=== PATIENT | male | born 1955 | race Caucasian/White ===

== ENCOUNTER → 2016-03-16 | Outpatient (CLI) | payer BC ==
[~2016-03-16] MED LIST: ASPI325T39 PO; CLOP1TAB5 PO; LOSA50TA54 PO; LPT40 PO; MULT-506 PO; POTA1080 PO; TPRSR/100 PO
== END | disposition home or self-care (01) ==
LOC: C.LAB 14:13
PROVIDERS: ATTEND Urology
DX: N39.0 Urinary tract infection, site not specified (principal)

== ENCOUNTER → 2016-05-10 | Outpatient (CLI) | payer BC ==
[2016-05-10 10:49] LABS: BLOOD UREA NITROGEN 24 mg/dl (7-18); BUN/CREATININE RATIO 24.2 (10-20); CARBON DIOXIDE 27 mmol/L (21-32); CHLORIDE 108 mmol/L (98-107); GLUCOSE 85 mg/dl (70-99); POTASSIUM 4.2 mmol/L (3.5-5.1); SODIUM 142 mmol/L (136-145)
[2016-05-10 10:56] LABS: CHOLESTEROL/HDL RATIO 2.3
== END | disposition home or self-care (01) ==
LOC: C.LAB 09:10
PROVIDERS: ATTEND Urology
DX: N20.0 Calculus of kidney (principal); I25.10 Atherosclerotic heart disease of native coronary artery without angina pectoris; I10 Essential (primary) hypertension; E78.5 Hyperlipidemia, unspecified

== ENCOUNTER → 2016-07-03 | Outpatient (CLI) | payer BC | END | disposition home or self-care (01) | LOC: C.MAMM 12:58 | DX: M85.88 Other specified disorders of bone density and structure, other site (principal) ==

== ENCOUNTER → 2017-05-13 | Outpatient (CLI) | payer OTHER ==
[2017-05-13 09:34] LABS: BASO % 0.3 %; BASO ABS # 0.02 K/uL (0-0.2); EOS % 5.1 %; HEMATOCRIT 43.4 % (42-52); HEMOGLOBIN 14.8 g/dL (14.0-18.0); IG# 0.01 K/uL (0.00-0.02); LYMPH % 22.7 %; LYMPH ABS # 1.33 K/uL (1.2-3.4); MEAN CELL VOLUME 89.9 fL (80-100); MEAN CORPUSCULAR HEMOGLOBIN 30.6 pg (25-34); MEAN CORPUSCULAR HGB CONC 34.1 g/dl (32-36); MEAN PLATELET VOLUME 10.4 fL (7.4-10.4); MONO % 5.6 %; MONO ABS # 0.33 K/uL (0.11-0.59); NEUT % 66.1 %; NEUT ABS # 3.87 K/uL (1.4-6.5); PLATELET COUNT 193 K/uL (130-400); WHITE BLOOD COUNT 5.86 K/uL (4.8-10.8)
[2017-05-13 09:59] LABS: HEMOGLOBIN A1C 5.7 % (4.5-5.6)
[2017-05-13 10:02] LABS: ALT/SGPT 24 U/L (12-78); AST/SGOT 16 U/L (15-37); BLOOD UREA NITROGEN 17 mg/dl (7-18); CALCIUM 9.5 mg/dl (8.5-10.1); CARBON DIOXIDE 26 mmol/L (21-32); CREATININE 0.96 mg/dl (0.60-1.40); GLUCOSE 94 mg/dl (70-99); SODIUM 139 mmol/L (136-145); URIC ACID 4.9 mg/dl (2.6-7.2)
== END | disposition home or self-care (01) ==
LOC: C.LAB 08:32
DX: I10 Essential (primary) hypertension (principal); E78.5 Hyperlipidemia, unspecified; M81.0 Age-related osteoporosis without current pathological fracture; N40.0 Benign prostatic hyperplasia without lower urinary tract symptoms

== ENCOUNTER → 2017-06-07 | Outpatient (CLI) | payer OTHER ==
[2017-06-07 13:58] LABS: INFLUENZA A PCR Neg for Influ A (NEG); INFLUENZA B PCR Neg for Influ B (NEG)
== END | disposition home or self-care (01) ==
LOC: C.LAB 12:24
DX: R50.9 Fever, unspecified (principal)

== ENCOUNTER 2024-12-31 23:34 | Observation (INO) ==
--- NOTE | 2025-01-01 00:12 | Emergency Department Note ---
ED Visit Note The patient was seen and examined with Geo. I performed a substantive portion of all aspects of the medical decision making and agree with the h istory, physical and findings. Please see the note for disposition and details. .
[2025-01-01] MEDS: ACETAMINOPHEN 1,000 MG/100 ML VIAL IV STA (00:18)
[2025-01-01 00:28] LABS: Hematocrit (blood only) 44.5 % (42.0-52.0); Hemoglobin 14.9 g/dL (14.0-18.0); Immature Granulocytes # (auto) 0.03 K/uL (0.01-0.20); Immature Granulocytes % (auto) 0.3 %; Mean Corpuscular Hemoglobin 29.9 pg (25.0-34.0); Mean Corpuscular Volume 89.2 fL (80.0-100.0); Platelet Count 190 K/uL (130-400); RDW Standard Deviation 46.3 fL (36.4-46.3); Red Blood Count 4.99 M/uL (4.70-6.10); White Blood Count 10.22 K/ul (4.8-10.8)
[2025-01-01 00:45] LABS: Alanine Aminotransferase 15.0 U/L (7-52); Albumin Level 4.7 gm/dl (3.4-5.0); Alkaline Phosphatase 104.0 U/L (34-104); Anion Gap 6.0 (3-11); Bilirubin,Total 1.3 mg/dl (0.2-1.0); Blood Urea Nitrogen 23.0 mg/dl (6-23); Calcium 9.9 mg/dl (8.6-10.3); Carbon Dioxide 25.0 mmol/L (21-32); Chloride 107.0 mmol/L (98-107); Creatinine Clr Calc Pharmacy 83.1 ml/min; Glucose 114.0 mg/dl (70-99(Fasting)); Magnesium 1.9 mg/dl (1.7-2.4); Potassium 3.7 mmol/L (3.5-5.1); Sodium 138.0 mmol/L (136-145); Total Protein 8.1 gm/dl (6.0-8.3)
[2025-01-01 00:48] LABS: Base Excess VBG 0.5 mEq/L; HCO3 VBG 26 mmol/L; Oxygen Saturation VBG < 60.0 %; PCO2 VBG 44 mmHg (38-50); PO2 VBG 28 mmHg; pH VBG 7.38 (7.36-7.41)
[2025-01-01] MEDS: OPTIRAY 320 125ml IV ONE (01:05)
[2025-01-01 01:27] LABS: Chlamydia pneumoniae PCR Not Detected (NotDetected); Coronavirus 229E PCR Not Detected (NotDetected); Coronavirus CoV-2 (COVID19)PCR Not Detected (NotDetected); Coronavirus HKU1 PCR Not Detected (NotDetected); Coronavirus NL63 PCR Not Detected (NotDetected); Coronavirus OC43PCR Not Detected (NotDetected); Human Metapneumovirus PCR Not Detected (NotDetected); Parainfluenza Virus 1 PCR Not Detected (NotDetected); Parainfluenza Virus 2 PCR Not Detected (NotDetected); Parainfluenza Virus 3 PCR Not Detected (NotDetected); Parainfluenza Virus 4 PCR Not Detected (NotDetected); Respiratory Syncytial VirusPCR Not Detected (NotDetected); Rhinovirus/Enterovirus PCR Not Detected (NotDetected)
[2025-01-01] MEDS: MoRPHine SULFATE 4 MG/ML 1 ML CARP\\VIAL IV STA (01:34)
--- NOTE | 2025-01-01 01:39 | Emergency Department Note ---
History of Present Illness General Chief complaint: Abdominal Pain Stated complaint: FLU-LIKE SX, ABD PAIN, BACK PAIN, SX SINCE ~SATURDAY Time Seen by Provider: 12/31/24 23:48 History of Present Illness Maximum Pain Intensity: 2 This 69-year-old male presents ER complaint of fever, chills, cough, congestion, right side abdominal pain that radiates up to his chest for the past day or 2. Patient denies vomiting, diarrhea, injury to the area, urinary symptoms. He still has his gallbladder. He is concerned it could also be a kidney stone. Home Medications Medication Instructions Recorded Confirmed Type aspirin 81 mg tablet,delayed 81 mg PO HS 12/08/18 01/01/25 History release nitroglycerin 0.4 mg sublingual 0.4 mg sublingual Q5M PRN chest 09/23/23 01/01/25 Rx tablet pain #25 tabs alprazolam 1 mg tablet 1 mg PO UD #10 tabs 02/13/24 01/01/25 Rx rosuvastatin 20 mg tablet 20 mg PO HS #90 tabs 05/07/24 01/01/25 Rx tadalafil 5 mg tablet 5 mg PO DAILY #30 tabs 07/06/24 01/01/25 Rx potassium citrate 10 mEq (1,080 10 meq PO BID 30 days #90 tabs 09/09/24 01/01/25 Rx mg) tablet,extended release sildenafil 100 mg tablet 100 mg PO DAILY PRN sexual 11/25/24 01/01/25 Rx activity #20 tabs tadalafil 20 mg tablet 20 mg PO DAILY PRN sexual activity 11/25/24 01/01/25 Rx #20 tabs metoprolol succinate 100 mg 100 mg PO HS #90 tabs 12/25/24 01/01/25 Rx tablet,extended release 24 hr Allergies Allergy/AdvReac Type Severity Reaction Status Date / Time Penicillins Allergy Mild Rash Verified 12/10/24 11:08 Past Med/Surg History Problem List (Updated 01/01/25 @ 02:42 by Swapna Guardado PA-C) Abdominal pain, acute (Acute) Presence of bare metal stent in left circumflex coronary artery Erectile dysfunction Prediabetes NAFLD (nonalcoholic fatty liver disease) Hepatic cirrhosis Benign localized prostatic hyperplasia with lower urinary tract symptoms (LUTS) Calculus of kidney and ureter (Acute) Coronary artery stenosis (Acute) Other and unspecified hyperlipidemia (Acute) Internal hemorrhoids (Acute) Nephrolithiasis, uric acid (Acute) Kidney stones Ocular migraine hx Antiplatelet or antithrombotic long-term use Hyperlipidemia CAD (coronary artery disease) Hypertension Medical History History of MT (myocardial infarction) Fatty liver MGUS (monoclonal gammopathy of unknown significance) Sleep apnea Pericarditis Kidney stone Pleurisy Chest pain Surgical History History of coronary artery stent placement History of esophagogastroduodenoscopy (EGD) History of anesthesia reaction History of cystoscopy History of colonoscopy History of herniorrhaphy History of tooth extraction Retinal tear of right eye History of cataract surgery History of heart artery stent Family History Mother Hypertension Father Hypertension Grandfather (Maternal) Myocardial infarction Uncle Prostate cancer Denies family history of Ovarian cancer Breast cancer Colorectal cancer Social History Smoking Status: Never smoker Second Hand Exposure: No (hx); Do You Dip or Chew Tobacco: No; Hx Alcohol Use: Yes Hx Substance Use: Yes Preferred Language: Ghanaian Communication Ability: Effective Visual Impairment: Limited Hearing Ability: Normal Wood Floor Refinisher Required: No Beliefs That Will Affect Care: None marital status: / Current Living Situation: Alone current occupational status: 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 How many Children do You have: 2 Feels Safe at Home: Yes Childhood Exposure to Second-Hand Smoke: Yes Diet: regular caffeine: Yes during the past year weight has: remained stable Dental Care, Regularly: Yes Physical Activity Frequency: 3-4 Times per Week Seatbelt Use: always Sunscreen Use: Yes Assistive Devices: CPAP Review of Systems A total of 10 systems reviewed and were otherwise negative Physical Exam Vital Signs Vital Signs - 24 hr 12/31/24 23:36 01/01/25 00:00 01/01/25 00:00 Temperature 36.7 C Temperature Source Oral Pulse Rate 82 Pulse Rate [Finger] 94 H Pulse Rate from SpO2 Sensor Pulse Rhythm [Finger] Regular Pulse Strength [Finger] Normal Respiratory Rate 20 20 Respiratory Effort / Characteristics Non-Labored Spontaneous Respiratory Depth Normal Respiratory Pattern Regular Blood Pressure 160/89 H Blood Pressure [Right Arm] 134/92 Blood Pressure Mean 112 Blood Pressure Mean [Right Arm] 106 Blood Pressure Position [Right Arm] Lying Pulse Oximetry 99 97 Oxygen Delivery Method Room Air Room Air Room Air Sepsis Recent Fever Within 48 Hours No Sepsis New/Unexplained Change in Mental Status No Sepsis Action Taken by Nursing No Action Required 01/01/25 00:14 01/01/25 00:15 01/01/25 00:25 Temperature Temperature Source Pulse Rate 89 92 H Pulse Rate [Finger] Pulse Rate from SpO2 Sensor 84 Pulse Rhythm [Finger] Pulse Strength [Finger] Respiratory Rate 22 Respiratory Effort / Characteristics Respiratory Depth Respiratory Pattern Blood Pressure 134/92 Blood Pressure [Right Arm] Blood Pressure Mean 106 Blood Pressure Mean [Right Arm] Blood Pressure Position [Right Arm] Pulse Oximetry 97 Oxygen Delivery Method Room Air Room Air Sepsis Recent Fever Within 48 Hours Sepsis New/Unexplained Change in Mental Status Sepsis Action Taken by Nursing 01/01/25 00:30 01/01/25 01:30 01/01/25 02:00 Temperature Temperature Source Pulse Rate 85 Pulse Rate [Finger] 82 84 Pulse Rate from SpO2 Sensor 85 Pulse Rhythm [Finger] Regular Regular Pulse Strength [Finger] Normal Normal Respiratory Rate 17 20 20 Respiratory Effort / Characteristics Non-Labored Spontaneous Non-Labored Spontaneous Respiratory Depth Normal Normal Respiratory Pattern Regular Regular Blood Pressure 126/83 Blood Pressure [Right Arm] 136/86 129/81 Blood Pressure Mean 97 Blood Pressure Mean [Right Arm] 102 97 Blood Pressure Position [Right Arm] Lying Lying Pulse Oximetry 96 97 98 Oxygen Delivery Method Room Air Room Air Sepsis Recent Fever Within 48 Hours Sepsis New/Unexplained Change in Mental Status Sepsis Action Taken by Nursing VITALS: Vitals are noted on the nurse's note and reviewed by myself. Vital signs stable. GENERAL: Pleasant gentleman who appears in pain, in no acute distress, nondiaphoretic, well-developed well-nourished. SKIN: The skin was without rashes, erythema, edema, or bruising. There is no tenting of the skin. Capillary reflex less than 2 seconds. HEAD: Normocephalic atraumatic. EARS: External auditory canals clear EYES: Pupils equal round and reactive to light and accommodation. Conjunctivae without injection, sclerae without icterus. Extraocular movements intact. NOSE: Patent, no discharge. MOUTH: Mucous membranes moist. Pharynx without erythema or exudate. Uvula midline. Airway patent. Tongue does not deviate. NECK: Supple without nuchal rigidity. No lymphadenopathy. No thyromegaly. Cervical spine is nontender. No JVD. HEART: Regular rate and rhythm LUNGS: Clear to auscultation bilaterally without wheezes, rales or rhonchi. No retractions or accessory muscle use. ABDOMEN: Positive bowel sounds x 4. Normal tympanic percussion. Soft, tender right abdomen, without masses or organomegaly. No guarding or rebound tenderness. No CVA tenderness MUSCULOSKELETAL: No muscle atrophy, erythema, or edema noted. NEURO: Patient was alert and oriented to person place and time. Normal sensation to light and sharp touch. No focal neurological deficits. Course Administered Medications Discontinued Medications Acetaminophen (Ofirmev) 1,000 mg in 100 mls @ 400 mls/hr IV NOW STA Stop: 01/01/25 00:21 Last Infusion: 01/01/25 00:41 Dose: Infused Documented By: Admin: 01/01/25 00:18 Dose: 400 mls/hr Documented By: MIGUEL Ioversol (Optiray 320 125ml) 118 ml IV ONCE ONE Stop: 01/01/25 01:06 Last Admin: 01/01/25 01:05 Dose: 118 ml Documented By: DELFINA Morphine Sulfate (Morphine Sulfate 4 Mg/Ml 1 Ml Carp\Vial) 4 mg IV NOW STA Stop: 01/01/25 01:29 Last Admin: 01/01/25 01:34 Dose: 4 mg Documented By: MIGUEL Medical Decision Making Medical Records Attestation: I reviewed the patient's medical records. Home Medications Current Medication List: was personally reviewed by me Laboratory Data Attestation: I reviewed the patient's lab results. 01/01/25 00:00 01/01/25 00:00 Lab Results 01/01/25 01/01/25 01/01/25 Range/Units 00:00 00:05 00:13 WBC 10.22 (4.8-10.8) K/ul RBC 4.99 (4.70-6.10) M/uL Hgb 14.9 (14.0-18.0) g/dL POC Hgb 16.0 (14.0-18.0) g/dl Hct 44.5 (42.0-52.0) % POC Hct 47 (42-52) % MCV 89.2 (80.0-100.0) fL MCH 29.9 (25.0-34.0) pg MCHC 33.5 (32.0-36.0) g/dL RDW Std Deviation 46.3 (36.4-46.3) fL RDW Coeff of Nito 14.4 (11.5-14.5) % Plt Count 190 (130-400) K/uL MPV 11.4 (9.4-12.4) fL Immature Gran % (Auto) 0.3 % Neut % (Auto) 82.7 % Lymph % (Auto) 9.7 % Clark % (Auto) 5.7 % Eos % (Auto) 1.2 % Baso % (Auto) 0.4 % Neut # (Auto) 8.46 H (1.40-6.50) K/uL Lymph # (Auto) 0.99 L (1.20-3.40) K/uL Clark # (Auto) 0.58 (0.11-0.59) K/uL Eos # (Auto) 0.12 (0.00-0.50) K/uL Baso # (Auto) 0.04 (0.00-0.20) K/uL Immature Gran # (Auto) 0.03 (0.01-0.20) K/uL VBG pH (7.36-7.41) VBG pCO2 (38-50) mmHg VBG pO2 mmHg VBG HCO3 mmol/L VBG O2 Saturation % VBG Base Excess mEq/L POC Sodium 142 (135-144) mmol/L Sodium 138 (136-145) mmol/L POC Potassium 3.7 (3.3-5.0) mmol/L Potassium 3.7 (3.5-5.1) mmol/L POC Chloride 105 (101-112) mmol/L Chloride 107 (98-107) mmol/L Carbon Dioxide 25 (21-32) mmol/L POC Total CO2 23 L (24-31) mmol/L Anion Gap 6 (3-11) POC Anion Gap 18.0 (16-25) mmol/L POC BUN 24 H (7-18) mg/dl BUN 23 (6-23) mg/dl Creatinine 1.01 (0.6-1.4) mg/dl POC Creatinine 1.0 (0.6-1.3) mg/dl Est Cr Clr Drug Dosing 83.1 ml/min eGFR 80.01 BUN/Creatinine Ratio 22.8 H (10-20) Glucose 114 H (70-99(Fasting)) mg/dl POC Glucose (other) 112 H (70-99) mg/dl Lactate 1.1 (0.4-2.0) mmol/L Calcium 9.9 (8.6-10.3) mg/dl POC Ioniz Calcium Levi 1.28 (1.12-1.32) mmol/l Magnesium 1.9 (1.7-2.4) mg/dl Total Bilirubin 1.3 H (0.2-1.0) mg/dl Direct Bilirubin 0.3 H (0-0.2) mg/dl AST 20 (13-39) U/L ALT 15 (7-52) U/L Alkaline Phosphatase 104 (34-104) U/L Troponin I High Sens 3.2 (0-20) pg/ml Total Protein 8.1 (6.0-8.3) gm/dl Albumin 4.7 (3.4-5.0) gm/dl Procalcitonin < 0.02 (0-0.5) ng/ml Urine Color Urine Appearance (Clear) Urine pH (4.5-7.5) Ur Specific Hardy (1.000-1.030) Urine Protein (Negative) Urine Glucose (UA) (Negative) Urine Ketones (Negative) Urine Blood (Negative) Urine Nitrite (Negative) Urine Bilirubin (Negative) Urine Urobilinogen (Negative) Ur Leukocyte Esterase (Negative) Urine Comment Adenovirus (PCR) Not Detected (NotDetected) B. pertussis DNA (PCR) Not Detected (NotDetected) B.parapertussis DNA PCR Not Detected (NotDetected) C. pneumoniae DNA (PCR) Not Detected (NotDetected) Coronavirus OC43 (PCR) Not Detected (NotDetected) Coronavirus HKU1 (PCR) Not Detected (NotDetected) Coronavirus 229E (PCR) Not Detected (NotDetected) SARS-CoV-2 (PCR) Not Detected (NotDetected) Coronavirus NL63 (PCR) Not Detected (NotDetected) Human Metapneumovir PCR Not Detected (NotDetected) Influenza Type A (PCR) Not Detected (NotDetected) Influenza Type B (PCR) Not Detected (NotDetected) M. pneumoniae (PCR) Not Detected (NotDetected) Parainfluenza 1 (PCR) Not Detected (NotDetected) Parainfluenza 2 (PCR) Not Detected (NotDetected) Parainfluenza 3 (PCR) Not Detected (NotDetected) Parainfluenza 4 (PCR) Not Detected (NotDetected) RSV (PCR) Not Detected (NotDetected) Entero/Rhino (PCR) Not Detected (NotDetected) 01/01/25 01/01/25 Range/Units 00:35 01:26 WBC (4.8-10.8) K/ul RBC (4.70-6.10) M/uL Hgb (14.0-18.0) g/dL POC Hgb (14.0-18.0) g/dl Hct (42.0-52.0) % POC Hct (42-52) % MCV (80.0-100.0) fL MCH (25.0-34.0) pg MCHC (32.0-36.0) g/dL RDW Std Deviation (36.4-46.3) fL RDW Coeff of Nito (11.5-14.5) % Plt Count (130-400) K/uL MPV (9.4-12.4) fL Immature Gran % (Auto) % Neut % (Auto) % Lymph % (Auto) % Clark % (Auto) % Eos % (Auto) % Baso % (Auto) % Neut # (Auto) (1.40-6.50) K/uL Lymph # (Auto) (1.20-3.40) K/uL Clark # (Auto) (0.11-0.59) K/uL Eos # (Auto) (0.00-0.50) K/uL Baso # (Auto) (0.00-0.20) K/uL Immature Gran # (Auto) (0.01-0.20) K/uL VBG pH 7.38 (7.36-7.41) VBG pCO2 44 (38-50) mmHg VBG pO2 28 mmHg VBG HCO3 26 mmol/L VBG O2 Saturation < 60.0 % VBG Base Excess 0.5 mEq/L POC Sodium (135-144) mmol/L Sodium (136-145) mmol/L POC Potassium (3.3-5.0) mmol/L Potassium (3.5-5.1) mmol/L POC Chloride (101-112) mmol/L Chloride (98-107) mmol/L Carbon Dioxide (21-32) mmol/L POC Total CO2 (24-31) mmol/L Anion Gap (3-11) POC Anion Gap (16-25) mmol/L POC BUN (7-18) mg/dl BUN (6-23) mg/dl Creatinine (0.6-1.4) mg/dl POC Creatinine (0.6-1.3) mg/dl Est Cr Clr Drug Dosing ml/min eGFR BUN/Creatinine Ratio (10-20) Glucose (70-99(Fasting)) mg/dl POC Glucose (other) (70-99) mg/dl Lactate (0.4-2.0) mmol/L Calcium (8.6-10.3) mg/dl POC Ioniz Calcium Levi (1.12-1.32) mmol/l Magnesium (1.7-2.4) mg/dl Total Bilirubin (0.2-1.0) mg/dl Direct Bilirubin (0-0.2) mg/dl AST (13-39) U/L ALT (7-52) U/L Alkaline Phosphatase (34-104) U/L Troponin I High Sens (0-20) pg/ml Total Protein (6.0-8.3) gm/dl Albumin (3.4-5.0) gm/dl Procalcitonin (0-0.5) ng/ml Urine Color Yellow Urine Appearance Clear (Clear) Urine pH 5.0 (4.5-7.5) Ur Specific Hardy 1.027 (1.000-1.030) Urine Protein Negative (Negative) Urine Glucose (UA) Negative (Negative) Urine Ketones Negative (Negative) Urine Blood Negative (Negative) Urine Nitrite Negative (Negative) Urine Bilirubin Negative (Negative) Urine Urobilinogen Negative (Negative) Ur Leukocyte Esterase Negative (Negative) Urine Comment Adenovirus (PCR) (NotDetected) B. pertussis DNA (PCR) (NotDetected) B.parapertussis DNA PCR (NotDetected) C. pneumoniae DNA (PCR) (NotDetected) Coronavirus OC43 (PCR) (NotDetected) Coronavirus HKU1 (PCR) (NotDetected) Coronavirus 229E (PCR) (NotDetected) SARS-CoV-2 (PCR) (NotDetected) Coronavirus NL63 (PCR) (NotDetected) Human Metapneumovir PCR (NotDetected) Influenza Type A (PCR) (NotDetected) Influenza Type B (PCR) (NotDetected) M. pneumoniae (PCR) (NotDetected) Parainfluenza 1 (PCR) (NotDetected) Parainfluenza 2 (PCR) (NotDetected) Parainfluenza 3 (PCR) (NotDetected) Parainfluenza 4 (PCR) (NotDetected) RSV (PCR) (NotDetected) Entero/Rhino (PCR) (NotDetected) Imaging Data Attestation: I personally reviewed and interpreted this imaging study as follows: Radiologist's Impression: Abdomen/Pelvis CT 01/01/25 00:07 EXAM: CT abd pelvis IV con only CLINICAL HISTORY: fever, right abd pain TECHNIQUE: Contiguous axial images were obtained from the level of the diaphragm to the pubic symphysis with intravenous contrast. Coronal and sagittal reconstructions were likewise performed and indicated to increase the sensitivity for detecting clinically relevant pathology. If IV contrast material had not been administered, the likelihood of detecting abnormalities relevant to the patient's condition would have been substantially decreased. CT scan was performed according to ALARA (as low as reasonably achievable). COMPARISON: 10:45:41 TOBACCO BALER. FINDINGS: Few atelectatic bands are noted involving bilateral lung bases.The liver appears relatively smaller in size and shows hypertrophied caudate lobe. It shows mild heterogeneous parenchyma with irregular nodular surface. Portal vein appears dilated. Sliding hiatus hernia noted. The gallbladder is present. The spleen, pancreas, and adrenal glands are unremarkable. The kidneys are normal in size and attenuation. Stable prominent left renal pelvicalyceal system. Mild bilateral perinephric fat stranding. No renal calculi or renal masses are identified. Few simple cortical cyst are noted in both kidneys. New left renal cyst. The ureters are normal in caliber and no ureteral calculi are seen. The bladder is normal in contour. Enlarged prostate with median lobe hypertrophy. No focal or diffuse bowel wall thickening or evidence of bowel obstruction is identified. No imaging evidence of appendicitis. Abdominal and pelvic vasculature is patent. No adenopathy or fluid collections are seen. No aggressive appearing osseous lesions are identified. IMPRESSION: Cirrhosis of liver with dilated portal vein.-stable. Sliding hiatus hernia.-stable. Enlarged prostate.-stable. Resolution of prior urinary bladder wall thickening. Electronically signed by Wang Solitario 01-01-2025 01:56 AM Chest CTA 01/01/25 00:07 EXAM: CT angio chest PE protocol CLINICAL HISTORY: PE TECHNIQUE: Contiguous axial images were obtained from the neck base through the upper abdomen following intravenous administration of iodinated contrast material. Angiographic images were processed, 3D MIP images were acquired for interpretation. If IV contrast material had not been administered, the likelihood of detecting abnormalities relevant to the patient's condition would have been substantially decreased. Coronal and sagittal 3-D MIPs were likewise performed and indicated to increase the sensitivity of detectin diffuse clinically relevant pathology. CT scan was performed according to ALARA (as low as reasonable achievable). COMPARISON: 09/16/2018 FINDINGS: Adequate contrast bolus without evidence of pulmonary embolism. The central airways are patent. Interval increase in bibasal atelectasis bands. Rest of the lungs are clear. No pleural effusion. Interval unchanged calcification along the pericardium. The heart, aorta, and pulmonary arteries are of normal size and configuration. There are no appreciable coronary artery and few aortic atherosclerotic calcifications. No pericardial effusion is identified. The thyroid is unremarkable. No mediastinal, hilar, or axillary lymphadenopathy is noted. No suspicious lytic or sclerotic osseous lesions are identified. Degenerative changes in visualised spine. IMPRESSION: No evidence of pulmonary embolism Interval increase in bibasal atelectasis bands. Interval unchanged calcification along the pericardium. Electronically signed by Wang Solitario 01-01-2025 02:02 AM MDM Narrative Prior records/ancillary studies reviewed. Triage Nursing notes reviewed. Additional history obtained from nursing. The patient's history was concerning for chest and abdominal pain with subjective fever and chills. Differential diagnosis: Etiologies such as cardiac, pulmonary, appendicitis, diverticulitis, PUD, biliary pathology, UTI, pancreatitis, obstruction, mesenteric ischemia, aortic pathology, infections, inflammatory bowel disease, renal colic, as well as others were entertained. Physical examination findings: As above. ER treatment provided: An order was placed for continuous cardiac monitoring. The monitor shows a rate of 60-100 with a sinus rhythm per my Independent interpretation. Tylenol, morphine, fluids On reassessment the patient felt better. Diagnostics interpreted by me: ECG: Ordered for chest pain EKG: Normal sinus, right bundle, occasional PVC, no acute ST-T wave changes, rate of 96. Impression normal sinus rhythm right bundle pippa block occasional PVC independently interpreted by myself The labs Independently Interpreted by myself revealed No worrisome leukocytosis, normal VBG, negative BioFire. Blood cultures pending Imaging studies: Imaging was reviewed and read by radiology Ultrasound was ordered for further workup on the gallbladder as pain persisted Consultation: A consultation was placed with the hospitalist. The case was discussed and diagnostics were reviewed. The patient was evaluated in the ER for further treatment. Exam and history seem consistent with acute abdominal pain with unclear etiology. Patient was in too much pain to go home. He would like to be admitted. Ultrasound was ordered for further evaluation of the gallbladder. This could be biliary colic. No worrisome leukocytosis. Negative lactic. Stable imaging. Medicine was consulted case discussed. He will be evaluated for admission. By the evaluation outlined above emergent etiologies such as appendicitis, diverticulitis, PUD, UTI, pancreatitis, obstruction, mesenteric ischemia, aortic pathology, infections, inflammatory bowel disease, renal colic, as well as others were deemed relatively unlikely. The pt informed about the findings as listed above. All questions were answered and pleased with the treatment. The chart was completed utilizing [employer] Speech voice recognition software. Grammatical errors, random word insertions, pronoun errors, and incomplete sentences are an occassional consequence of this system due to software limitations, ambient noise, and hardware issues. Any formal questions or concerns about the content, text, or information contained within the body of this dictation should be directly addressed to the physician assistant hvac mechanic for clarification. Impression & Plan Abdominal pain, acute Discharge Plan Visit Data Chief Complaint: Abdominal Pain Stated Complaint: FLU-LIKE SX, ABD PAIN, BACK PAIN, SX SINCE ~SATURDAY ED Provider: Maury Demarco ED Midlevel Provider: Swapna Guardado Discharge Problem: Abdominal pain, acute Patient Disposition: Being Evaluated by Hospitalist Condition: Good Forms Stand Alone Forms: My [facility] Prescriptions Prescriptions: No Action nitroglycerin 0.4 mg tablet, sublingual 0.4 mg sublingual Q5M PRN (Reason: chest pain) Qty: 25 2RF Rx Instructions: until response; do not exceed 3 doses per episode. DO NOT TAKE WITHIN 24 hours of use of tadalafil !!!! alprazolam 1 mg tablet 1 mg PO UD Qty: 10 0RF Rx Instructions: 1 mg orally 30-60 min prior to air travel; rosuvastatin 20 mg tablet 20 mg PO HS Qty: 90 3RF tadalafil 5 mg tablet 5 mg PO DAILY Qty: 30 11RF potassium citrate 10 mEq (1,080 mg) tablet extended release 10 meq PO BID 30 Days Qty: 90 3RF sildenafil 100 mg tablet 100 mg PO DAILY PRN (Reason: sexual activity) Qty: 20 11RF Rx Instructions: administer 30 minutes to 4 hours before activity - do not administer with nitroglycerin tadalafil 20 mg tablet 20 mg PO DAILY PRN (Reason: sexual activity) Qty: 20 11RF metoprolol succinate 100 mg tablet extended release 24 hr 100 mg PO HS Qty: 90 1RF Rx Instructions: TAKE 1 TABLET BY MOUTH EVERY DAY aspirin 81 mg Tablet,Delayed Release (Dr/Ec) 81 mg PO HS Referrals Referrals: Farnaz Laguna MD [Primary Care Provider] -
[2025-01-01 01:45] LABS: Appearance Urine Clear (Clear); Glucose Urine UA Negative (Negative)
--- NOTE | 2025-01-01 01:56 | CT Scan Report ---
EXAM: CT abd pelvis IV con only CLINICAL HISTORY: fever, right abd pain TECHNIQUE: Contiguous axial images were obtained from the level of the diaphragm to the pubic symphysis with intravenous contrast. Coronal and sagittal reconstructions were likewise performed and indicated to increase the sensitivity for detecting clinically relevant pathology. If IV contrast material had not been administered, the likelihood of detecting abnormalities relevant to the patient's condition would have been substantially decreased. CT scan was performed according to ALARA (as low as reasonably achievable). 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 FINDINGS: Few atelectatic bands are noted involving bilateral lung bases.The liver appears relatively smaller in size and shows hypertrophied caudate lobe. It shows mild heterogeneous parenchyma with irregular nodular surface. Portal vein appears dilated. Sliding hiatus hernia noted. The gallbladder is present. The spleen, pancreas, and adrenal glands are unremarkable. The kidneys are normal in size and attenuation. Stable prominent left renal pelvicalyceal system. Mild bilateral perinephric fat stranding. No renal calculi or renal masses are identified. Few simple cortical cyst are noted in both kidneys. New left renal cyst. The ureters are normal in caliber and no ureteral calculi are seen. The bladder is normal in contour. Enlarged prostate with median lobe hypertrophy. No focal or diffuse bowel wall thickening or evidence of bowel obstruction is identified. No imaging evidence of appendicitis. Abdominal and pelvic vasculature is patent. No adenopathy or fluid collections are seen. No aggressive appearing osseous lesions are identified. IMPRESSION: Cirrhosis of liver with dilated portal vein.-stable. Sliding hiatus hernia.-stable. Enlarged prostate.-stable. Resolution of prior urinary bladder wall thickening. Electronically signed by Wang Solitario 01-01-2025 01:56 AM
--- NOTE | 2025-01-01 02:02 | CT Scan Report ---
EXAM: CT angio chest PE protocol CLINICAL HISTORY: PE TECHNIQUE: Contiguous axial images were obtained from the neck base through the upper abdomen following intravenous administration of iodinated contrast material. Angiographic images were processed, 3D MIP images were acquired for interpretation. If IV contrast material had not been administered, the likelihood of detecting abnormalities relevant to the patient's condition would have been substantially decreased. Coronal and sagittal 3-D MIPs were likewise performed and indicated to increase the sensitivity of detectin diffuse clinically relevant pathology. CT scan was performed according to ALARA (as low as reasonable achievable). COMPARISON: 09/16/2018 FINDINGS: Adequate contrast bolus without evidence of pulmonary embolism. The central airways are patent. Interval increase in bibasal atelectasis bands. Rest of the lungs are clear. No pleural effusion. Interval unchanged calcification along the pericardium. The heart, aorta, and pulmonary arteries are of normal size and configuration. There are no appreciable coronary artery and few aortic atherosclerotic calcifications. No pericardial effusion is identified. The thyroid is unremarkable. No mediastinal, hilar, or axillary lymphadenopathy is noted. No suspicious lytic or sclerotic osseous lesions are identified. Degenerative changes in visualised spine. IMPRESSION: No evidence of pulmonary embolism Interval increase in bibasal atelectasis bands. Interval unchanged calcification along the pericardium. Electronically signed by Wang Solitario 01-01-2025 02:02 AM
[2025-01-01] MEDS ORDERED: HYDROmorphone INJ 0.5 MG/0.5 ML SYR IV PRN (02:58)
[2025-01-01] MEDS ORDERED: ONDANSETRON INJ 2 MG/ML 2 ML VIAL IV PRN ×2 (02:58→04:21)
[2025-01-01] MEDS ORDERED: ACETAMINOPHEN 1,000 MG/100 ML VIAL IV PRN (02:58)
[2025-01-01] MEDS ORDERED: METOPROLOL TARTRATE 1 MG/ML VIAL IV PRN ×2 (03:09→03:27)
--- NOTE | 2025-01-01 03:26 | History & Physical Report ---
Date of Service January 01, 2025 Assessment & Plan (1) Right upper quadrant abdominal pain: (2) Hepatic cirrhosis: (3) NAFLD (nonalcoholic fatty liver disease): Plan The patient is a 69-year-old male with past medical history including prediabetes, NAFLD, hepatic cirrhosis, BPH with LUTS, kidney and ureteral calculus, coronary artery stenosis, CAD, hypertension, ocular migraine, and hyperlipidemia. He reports that he was recently on a car trip to [place], and returned back to the area 3 days ago. Upon return he noted development of some abdominal discomfort more commonly concentrated in the right upper quadrant. He had no associated nausea or vomiting. The pain been gradually worsening for the past few days. He thought the pain might be related to kidney stone he was told he had. CT scan of abdomen pelvis did not reveal any kidney stone, but did but did reveal known hepatic cirrhosis with a stable dilated portal vein, stable sliding and a hernia, stable enlarged prostate, and resolution of prior urinary bladder wall thickening. CT angiography of chest Was negative for PE was negative for PE. There was an interval increase in bibasilar atelectasis bands, and unchanged calcification along the pericardium. Laboratories revealed a normal procalcitonin at 3.7, normal lactate 1.1, borderline elevated WBC of 10.22, and mildly elevated glucose of 114. BioFire testing was negative. Patient was referred for evaluation for admission to [facility]. Acute onset of right upper quadrant pain/hepatic cirrhosis/NAFLD- No accompanying nausea or vomiting Gradually worsening over the past few days N.p.o. except essential medications Liver tests are normal CT scan of abdomen and pelvis with above findings, with no acute gallbladder findings Clinical examination is suggestive of either pain due to gallbladder dysfunction, or inflammation of ongoing hepatic cirrhosis/NAFLD. Ordering ultrasound of right upper quadrant of abdomen HIDA scan ordered to assess gallbladder function Order CBC with differential, chemistry profile magnesium level for the a.m. Pantoprazole 40 mg IV daily NSS + KCl 20 mEq at 100 mL/h x 1 L Zofran 4 mg IV every 6 hours as needed Acetaminophen 1 g IV every 8 hours as needed for mild pain or fever Toradol 15 mg IV every 6 hours as needed for moderate pain Dilaudid 0.25 mg IV every 3 hours as needed for severe pain. CAD/hypertension- CT angiography chest negative for PE The patient will be admitted to telemetry for serial cardiac enzymes, serial EKG's, cardiac rhythm monitoring. Holding aspirin, Toprol all succinate, potassium citrate. Lopressor 5 mg IV every 4 hours as needed for systolic blood pressure greater than 150 Anxiety/insomnia- Continue alprazolam 1 mg daily as needed Hyperlipidemia- Temporarily hold rosuvastatin while n.p.o. ED- Hold sildenafil and tadalafil History of Present Illness Primary Care Provider: Farnaz Laguna MD The patient is a 69-year-old male with past medical history including prediabetes, NAFLD, hepatic cirrhosis, BPH with LUTS, kidney and ureteral calculus, coronary artery stenosis, CAD, hypertension, ocular migraine, and hyperlipidemia. He reports that he was recently on a car trip to [place], and returned back to the area 3 days ago. Upon return he noted development of some abdominal discomfort more commonly concentrated in the right upper quadrant. He had no associated nausea or vomiting. The pain been gradually worsening for the past few days. He thought the pain might be related to kidney stone he was told he had. CT scan of abdomen pelvis did not reveal any kidney stone, but did but did reveal known hepatic cirrhosis with a stable dilated portal vein, stable sliding and a hernia, stable enlarged prostate, and resolution of prior urinary bladder wall thickening. CT angiography of chestWas negative for PE was negative for PE. There was an interval increase in bibasilar atelectasis bands, and unchanged calcification along the pericardium. Laboratories revealed a normal procalcitonin at 3.7, normal lactate 1.1, borderline elevated WBC of 10.22, and mildly elevated glucose of 114. BioFire testing was negative. Patient was referred for evaluation for admission to [facility]. Allergies Allergy/AdvReac Type Severity Reaction Status Date / Time Penicillins Allergy Mild Rash Verified 12/10/24 11:08 Home Medications Medication Instructions Recorded Confirmed Type aspirin 81 mg tablet,delayed 81 mg PO HS 12/08/18 01/01/25 History release nitroglycerin 0.4 mg sublingual 0.4 mg sublingual Q5M PRN chest 09/23/23 01/01/25 Rx tablet pain #25 tabs alprazolam 1 mg tablet 1 mg PO UD #10 tabs 02/13/24 01/01/25 Rx rosuvastatin 20 mg tablet 20 mg PO HS #90 tabs 05/07/24 01/01/25 Rx tadalafil 5 mg tablet 5 mg PO DAILY #30 tabs 07/06/24 01/01/25 Rx potassium citrate 10 mEq (1,080 10 meq PO BID 30 days #90 tabs 09/09/24 01/01/25 Rx mg) tablet,extended release sildenafil 100 mg tablet 100 mg PO DAILY PRN sexual 11/25/24 01/01/25 Rx activity #20 tabs tadalafil 20 mg tablet 20 mg PO DAILY PRN sexual activity 11/25/24 01/01/25 Rx #20 tabs metoprolol succinate 100 mg 100 mg PO HS #90 tabs 12/25/24 01/01/25 Rx tablet,extended release 24 hr Past Med/Surg History Problem List (Updated 01/01/25 @ 04:08 by Lauro Renee MD) Right upper quadrant abdominal pain Abdominal pain, acute (Acute) Presence of bare metal stent in left circumflex coronary artery Erectile dysfunction Prediabetes NAFLD (nonalcoholic fatty liver disease) Hepatic cirrhosis Benign localized prostatic hyperplasia with lower urinary tract symptoms (LUTS) Calculus of kidney and ureter (Acute) Coronary artery stenosis (Acute) Other and unspecified hyperlipidemia (Acute) Internal hemorrhoids (Acute) Nephrolithiasis, uric acid (Acute) Kidney stones Ocular migraine hx Antiplatelet or antithrombotic long-term use Hyperlipidemia CAD (coronary artery disease) Hypertension Medical History History of SC (myocardial infarction) Fatty liver MGUS (monoclonal gammopathy of unknown significance) Sleep apnea Pericarditis Kidney stone Pleurisy Chest pain Surgical History History of coronary artery stent placement History of esophagogastroduodenoscopy (EGD) History of anesthesia reaction History of cystoscopy History of colonoscopy History of herniorrhaphy History of tooth extraction Retinal tear of right eye History of cataract surgery History of heart artery stent Family History Mother Hypertension Father Hypertension Grandfather (Maternal) Myocardial infarction Uncle Prostate cancer Denies family history of Ovarian cancer Breast cancer Colorectal cancer Social History Smoking Status: Never smoker Second Hand Exposure: No (hx); Do You Dip or Chew Tobacco: No; Hx Alcohol Use: Yes Hx Substance Use: Yes Preferred Language: Azerbaijani Communication Ability: Effective Visual Impairment: Limited Hearing Ability: Normal Form Drafter Required: No Beliefs That Will Affect Care: None marital status: / Current Living Situation: Alone 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 occupational 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 How many Children do You have: 2 Feels Safe at Home: Yes Childhood Exposure to Second-Hand Smoke: Yes Diet: regular caffeine: Yes during the past year weight has: remained stable Dental Care, Regularly: Yes Physical Activity Frequency: 3-4 Times per Week Seatbelt Use: always Sunscreen Use: Yes Assistive Devices: CPAP Review of Systems Review of Systems: The patient denies chest pain, palpitations, shortness of breath, dyspnea on exertion, cough, lower extremity swelling, sore throat, fevers, chills, sweats, weight change, fatigue, nausea, vomiting, diarrhea , constipation, pelvic pain, blood in urine or stool, dysuria, urinary frequency or urgency, lightheadedness, dizziness, headache, memory loss, loss of consciousness, rash, abnormal bruising or bleeding, imbalance, focal or generalized weakness, numbness or tingling in arms or legs, generalized arthralgias or myalgias, neck pain, or night sweats. The review of systems is otherwise negative other than for that already noted above, and at least 10 systems have been reviewed. Physical Exam Physical Exam: The patient is awake, alert and oriented 3, well developed and well nourished, normocephalic and atraumatic, lying in bed and in no acute distress. HEENT--PERRL, EOMI, mucous membranes and oropharynx mildly dry. Neck--supple. No JVD. No bruits. Thyroid normal, trachea midline, no adenopathy. Heart--normal S1 and S2. No murmurs, rubs or gallops. Lungs--clear bilaterally, no respiratory distress, no accessory muscle use. Abdomen--normal bowel sounds and soft. Tender right upper quadrant, worse with deep palpation. Nondistended. Mildly obese Extremities--no cyanosis or clubbing. No edema. There are good distal pulses b/l. Dermatologic--normal skin turgor, normal color, no abnormal lymph nodes, no rash. Neurologic--cranial nerves II through XII grossly intact. Rheumatologic--normal range of motion. Psychiatric--normal affect. Results & Data Results & Data Vital Signs (Past 12 Hours) Vital Signs Temp Pulse Pulse Resp BP BP Pulse Ox 01/01/25 02:30 82 18 143/90 H 97 01/01/25 02:00 82 18 129/81 95 01/01/25 02:00 84 20 129/81 98 01/01/25 01:30 84 22 136/86 97 01/01/25 01:30 82 20 136/86 97 01/01/25 00:30 85 17 126/83 96 01/01/25 00:25 01/01/25 00:15 92 H 22 134/92 97 01/01/25 00:14 89 01/01/25 00:00 01/01/25 00:00 94 H 20 134/92 97 12/31/24 23:36 36.7 C 82 20 160/89 H 99 O2 Del Method 01/01/25 02:30 01/01/25 02:00 01/01/25 02:00 Room Air 01/01/25 01:30 01/01/25 01:30 Room Air 01/01/25 00:30 01/01/25 00:25 Room Air 01/01/25 00:15 Room Air 01/01/25 00:14 01/01/25 00:00 Room Air 01/01/25 00:00 Room Air 12/31/24 23:36 Room Air Laboratory Results Laboratory Results WBC 10.22 K/ul (4.8-10.8) 01/01/25 00:00 RBC 4.99 M/uL (4.70-6.10) 01/01/25 00:00 Hgb 14.9 g/dL (14.0-18.0) 01/01/25 00:00 POC Hgb 16.0 g/dl (14.0-18.0) 01/01/25 00:13 Hct 44.5 % (42.0-52.0) 01/01/25 00:00 POC Hct 47 % (42-52) 01/01/25 00:13 MCV 89.2 fL (80.0-100.0) 01/01/25 00:00 MCH 29.9 pg (25.0-34.0) 01/01/25 00:00 MCHC 33.5 g/dL (32.0-36.0) 01/01/25 00:00 RDW Std Deviation 46.3 fL (36.4-46.3) 01/01/25 00:00 RDW Coeff of Nito 14.4 % (11.5-14.5) 01/01/25 00:00 Plt Count 190 K/uL (130-400) 01/01/25 00:00 MPV 11.4 fL (9.4-12.4) 01/01/25 00:00 Immature Gran % (Auto) 0.3 % 01/01/25 00:00 Neut % (Auto) 82.7 % 01/01/25 00:00 Lymph % (Auto) 9.7 % 01/01/25 00:00 [place] % (Auto) 5.7 % 01/01/25 00:00 Eos % (Auto) 1.2 % 01/01/25 00:00 Baso % (Auto) 0.4 % 01/01/25 00:00 Neut # (Auto) 8.46 K/uL (1.40-6.50) H 01/01/25 00:00 Lymph # (Auto) 0.99 K/uL (1.20-3.40) L 01/01/25 00:00 [place] # (Auto) 0.58 K/uL (0.11-0.59) 01/01/25 00:00 Eos # (Auto) 0.12 K/uL (0.00-0.50) 01/01/25 00:00 Baso # (Auto) 0.04 K/uL (0.00-0.20) 01/01/25 00:00 Immature Gran # (Auto) 0.03 K/uL (0.01-0.20) 01/01/25 00:00 VBG pH 7.38 (7.36-7.41) 01/01/25 00:35 VBG pCO2 44 mmHg (38-50) 01/01/25 00:35 VBG pO2 28 mmHg 01/01/25 00:35 VBG HCO3 26 mmol/L 01/01/25 00:35 VBG O2 Saturation < 60.0 % 01/01/25 00:35 VBG Base Excess 0.5 mEq/L 01/01/25 00:35 POC Sodium 142 mmol/L (135-144) 01/01/25 00:13 Sodium 138 mmol/L (136-145) 01/01/25 00:00 POC Potassium 3.7 mmol/L (3.3-5.0) 01/01/25 00:13 Potassium 3.7 mmol/L (3.5-5.1) 01/01/25 00:00 POC Chloride 105 mmol/L (101-112) 01/01/25 00:13 Chloride 107 mmol/L (98-107) 01/01/25 00:00 Carbon Dioxide 25 mmol/L (21-32) 01/01/25 00:00 POC Total CO2 23 mmol/L (24-31) L 01/01/25 00:13 Anion Gap 6 (3-11) 01/01/25 00:00 POC Anion Gap 18.0 mmol/L (16-25) 01/01/25 00:13 POC BUN 24 mg/dl (7-18) H 01/01/25 00:13 BUN 23 mg/dl (6-23) 01/01/25 00:00 Creatinine 1.01 mg/dl (0.6-1.4) 01/01/25 00:00 POC Creatinine 1.0 mg/dl (0.6-1.3) 01/01/25 00:13 Est Cr Clr Drug Dosing 83.1 ml/min 01/01/25 00:00 eGFR 80.01 01/01/25 00:00 BUN/Creatinine Ratio 22.8 (10-20) H 01/01/25 00:00 Glucose 114 mg/dl (70-99(Fasting)) H 01/01/25 00:00 POC Glucose (other) 112 mg/dl (70-99) H 01/01/25 00:13 Lactate 1.1 mmol/L (0.4-2.0) 01/01/25 00:05 Calcium 9.9 mg/dl (8.6-10.3) 01/01/25 00:00 POC Ioniz Calcium Levi 1.28 mmol/l (1.12-1.32) 01/01/25 00:13 Magnesium 1.9 mg/dl (1.7-2.4) 01/01/25 00:00 Total Bilirubin 1.3 mg/dl (0.2-1.0) H 01/01/25 00:00 Direct Bilirubin 0.3 mg/dl (0-0.2) H 01/01/25 00:00 AST 20 U/L (13-39) 01/01/25 00:00 ALT 15 U/L (7-52) 01/01/25 00:00 Alkaline Phosphatase 104 U/L (34-104) 01/01/25 00:00 Troponin I High Sens 3.2 pg/ml (0-20) 01/01/25 00:00 Total Protein 8.1 gm/dl (6.0-8.3) 01/01/25 00:00 Albumin 4.7 gm/dl (3.4-5.0) 01/01/25 00:00 Procalcitonin < 0.02 ng/ml (0-0.5) 01/01/25 00:00 Urine Color Yellow 01/01/25 01:26 Urine Appearance Clear (Clear) 01/01/25 01:26 Urine pH 5.0 (4.5-7.5) 01/01/25 01:26 Ur Specific [place] 1.027 (1.000-1.030) 01/01/25 01:26 Urine Protein Negative (Negative) 01/01/25 01:26 Urine Glucose (UA) Negative (Negative) 01/01/25 01:26 Urine Ketones Negative (Negative) 01/01/25 01:26 Urine Blood Negative (Negative) 01/01/25 01:26 Urine Nitrite Negative (Negative) 01/01/25 01:26 Urine Bilirubin Negative (Negative) 01/01/25 01:26 Urine Urobilinogen Negative (Negative) 01/01/25 01:26 Ur Leukocyte Esterase Negative (Negative) 01/01/25 01:26 Urine Comment 01/01/25 01:26 Adenovirus (PCR) Not Detected (NotDetected) 01/01/25 00:05 B. pertussis DNA (PCR) Not Detected (NotDetected) 01/01/25 00:05 B.parapertussis DNA PCR Not Detected (NotDetected) 01/01/25 00:05 C. pneumoniae DNA (PCR) Not Detected (NotDetected) 01/01/25 00:05 Coronavirus OC43 (PCR) Not Detected (NotDetected) 01/01/25 00:05 Coronavirus HKU1 (PCR) Not Detected (NotDetected) 01/01/25 00:05 Coronavirus 229E (PCR) Not Detected (NotDetected) 01/01/25 00:05 SARS-CoV-2 (PCR) Not Detected (NotDetected) 01/01/25 00:05 Coronavirus NL63 (PCR) Not Detected (NotDetected) 01/01/25 00:05 Human Metapneumovir PCR Not Detected (NotDetected) 01/01/25 00:05 Influenza Type A (PCR) Not Detected (NotDetected) 01/01/25 00:05 Influenza Type B (PCR) Not Detected (NotDetected) 01/01/25 00:05 M. pneumoniae (PCR) Not Detected (NotDetected) 01/01/25 00:05 Parainfluenza 1 (PCR) Not Detected (NotDetected) 01/01/25 00:05 Parainfluenza 2 (PCR) Not Detected (NotDetected) 01/01/25 00:05 Parainfluenza 3 (PCR) Not Detected (NotDetected) 01/01/25 00:05 Parainfluenza 4 (PCR) Not Detected (NotDetected) 01/01/25 00:05 RSV (PCR) Not Detected (NotDetected) 01/01/25 00:05 Entero/Rhino (PCR) Not Detected (NotDetected) 01/01/25 00:05 Impressions Abdomen/Pelvis CT 01/01/25 00:07 EXAM: CT abd pelvis IV con only CLINICAL HISTORY: fever, right abd pain TECHNIQUE: Contiguous axial images were obtained from the level of the diaphragm to the pubic symphysis with intravenous contrast. Coronal and sagittal reconstructions were likewise performed and indicated to increase the sensitivity for detecting clinically relevant pathology. If IV contrast material had not been administered, the likelihood of detecting abnormalities relevant to the patient's condition would have been substantially decreased. CT scan was performed according to ALARA (as low as reasonably achievable). 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 It shows mild heterogeneous parenchyma with irregular nodular surface. Portal vein appears dilated. Sliding hiatus hernia noted. The gallbladder is present. The spleen, pancreas, and adrenal glands are unremarkable. The kidneys are normal in size and attenuation. Stable prominent left renal pelvicalyceal system. Mild bilateral perinephric fat stranding. No renal calculi or renal masses are identified. Few simple cortical cyst are noted in both kidneys. New left renal cyst. The ureters are normal in caliber and no ureteral calculi are seen. The bladder is normal in contour. Enlarged prostate with median lobe hypertrophy. No focal or diffuse bowel wall thickening or evidence of bowel obstruction is identified. No imaging evidence of appendicitis. Abdominal and pelvic vasculature is patent. No adenopathy or fluid collections are seen. No aggressive appearing osseous lesions are identified. IMPRESSION: Cirrhosis of liver with dilated portal vein.-stable. Sliding hiatus hernia.-stable. Enlarged prostate.-stable. Resolution of prior urinary bladder wall thickening. Electronically signed by Wang Solitario 01-01-2025 01:56 AM Chest CTA 01/01/25 00:07 EXAM: CT angio chest PE protocol CLINICAL HISTORY: PE TECHNIQUE: Contiguous axial images were obtained from the neck base through the upper abdomen following intravenous administration of iodinated contrast material. Angiographic images were processed, 3D MIP images were acquired for interpretation. If IV contrast material had not been administered, the likelihood of detecting abnormalities relevant to the patient's condition would have been substantially decreased. Coronal and sagittal 3-D MIPs were likewise performed and indicated to increase the sensitivity of detectin diffuse clinically relevant pathology. CT scan was performed according to ALARA (as low as reasonable achievable). COMPARISON: 09/16/2018 FINDINGS: Adequate contrast bolus without evidence of pulmonary embolism. The central airways are patent. Interval increase in bibasal atelectasis bands. Rest of the lungs are clear. No pleural effusion. Interval unchanged calcification along the pericardium. The heart, aorta, and pulmonary arteries are of normal size and configuration. There are no appreciable coronary artery and few aortic atherosclerotic calcifications. No pericardial effusion is identified. The thyroid is unremarkable. No mediastinal, hilar, or axillary lymphadenopathy is noted. No suspicious lytic or sclerotic osseous lesions are identified. Degenerative changes in visualised spine. IMPRESSION: No evidence of pulmonary embolism Interval increase in bibasal atelectasis bands. Interval unchanged calcification along the pericardium. Electronically signed by Wang Solitario 01-01-2025 02:02 AM Code Status & VTE Plan Code Status Full code VTE Prophylaxis Plan VTE Prophylaxis will be ordered: Yes PG Care Time/CCT Total # of Minutes Spent Total Time Spent with Patient: Total time spent is greater than 50% in coordination of care (as documented) at patient's floor/unit and/or counseling patient: Coding Level of Care Code 66827 INT INP/OBS CARE 3/75MIN Diagnoses Right upper quadrant abdominal pain R10.11 Hepatic cirrhosis K74.60 NAFLD (nonalcoholic fatty liver disease) K76.0
[2025-01-01] MEDS: KETOROLAC TROMETHAMINE 15 MG/ML VIAL IV PRN (03:44)
[2025-01-01] MEDS: PANTOprazole 40 MG/10 ML SYR IV STA (03:44)
[2025-01-01] MEDS ORDERED: NITROGLYCERIN SL 0.4 MG/TAB TAB SL PRN (04:21)
[2025-01-01] MEDS: NSS + 20MEQ KCL 20 MEQ/1,000 ML BAG IV STA (04:22)
--- NOTE | 2025-01-01 04:50 | Ultrasound Report ---
EXAM: US gallbladder CLINICAL HISTORY: RUQ pain. TECHNIQUE: Limited ultrasound of the liver and gallbladder was performed in greyscale and Doppler. Multiple images were obtained in transverse and longitudinal planes. 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 FINDINGS: Liver: Liver size: measured 17.1 cm, irregular contour, with increased echogenicity, and heterogeneous echotexture. Patent portal vein. Gallbladder: Gallbladder is visualized and appears normal in size and shape. Sludge seen, no wall thickening, or pericholecystic fluid noted. The wall measured 1.6 mm. No evidence of gallbladder wall edema or signs of acute cholecystitis. Franco's sign could not be assessed. Biliary Tree: The common bile duct is within normal limits in caliber and not dilated. Measured 4.2 mm. No evidence of choledocholithiasis or biliary obstruction. Renal cortical cyst at the upper pole measured 3.6 x 2.8 x 3.1 cm, focal dilated collecting system noted, and parapelvic cysts. Please correlate with the prior CT exam. IMPRESSION: 1. No evidence of cholelithiasis or cholecystitis. 2. Liver measured 17.1 cm, irregular contour, with increased echogenicity, and heterogeneous echotexture, findings of liver cirrhosis. 3. Right renal cysts. Electronically signed by Gilmar Torres 01-01-2025 04:50 AM
[2025-01-01] MEDS: SINCALIDE 2 MCG in SODIUM CHLORIDE 0.9% 100 ML IV ONE (10:12)
--- NOTE | 2025-01-01 10:40 | Nuclear Medicine Report ---
NUCLEAR MEDICINE HEPATOBILIARY SCAN WITH GALLBLADDER EJECTION FRACTION CLINICAL HISTORY: Right upper quadrant pain. COMPARISON: Right upper quadrant ultrasound and CT of the abdomen and pelvis January 01, 2025. TECHNIQUE: 5.4 mCi of technetium 99m Choletec IV was injected at 7:45 AM on January 01, 2025. Imme diately following injection, imaging of the abdomen was carried out for 60 minutes in the anterior pr ojection. At this time, 2 mcg of sincalide was injected IV as per protocol. Gallbladder ejection frac tion was estimated. FINDINGS: Hepatic uptake of radiotracer is prompt and homogeneous. Radiotracer activity is identified within the gallbladder at 10 minutes, common bile duct at 10 minutes and small bowel at 20 minutes. There is normal distribution of radiotracer. Following administration of sincalide, gallbladder eject ion fraction was calculated at least 43%. Normal is greater than 30-35%. IMPRESSION: 1. Normal hepatobiliary scan. No evidence for acute or chronic cholecystitis. 2. Normal gallbladder ejection fraction. ACT 112: Negative or not required by law. Electronically signed by: Mitch Lafleur M.D. 01/01/2025 10:39 AM
--- NOTE | 2025-01-01 13:20 | Hospitalist Progress Note ---
Date of Service January 01, 2025 Assessment & Plan (1) Right upper quadrant abdominal pain: Plan: Appears to be musculoskeletal in origin. HIDA scan is unremarkable. No evidence of acute cholecystitis. Will treat symptomatically and control pain for now (2) Hepatic cirrhosis: Plan: Nonalcoholic. Currently asymptomatic. (3) NAFLD (nonalcoholic fatty liver disease): Plan: Noted on CT scan. Patient aware (4) CAD (coronary artery disease): Plan: No evidence of acute [place]. Currently stable (5) Hypertension: Plan: Stable. Continue current medical management Plan Hopeful discharge to home tomorrow, January 02 Admission and Anticipated Discharge Date Admission Date: January 01, 2025 Subjective Alert and oriented. Fortunately he has HIDA scan was negative for any acute gallbladder disease. He continues to have palpable tenderness in the right upper quadrant and lower right chest area. This is probably musculoskeletal in nature. IV fluids have been discontinued and diet has been started. Hopefully he can go home tomorrow, December 23 Review of Systems 2 Review of Systems: Constitutionalno fever or chills ENTno blurred vision, no double vision, no epistaxis, no sore throat Respiratoryno cough, no wheezing, no shortness of breath Cardiacno palpitations, no chest pain, no syncope Mele nausea, vomiting, diarrhea, melena, hematochezia GUno urinary retention, no urinary incontinence, no dysuria, no hematuria Musculoskeletalno joint pain. Tenderness to palpation along the right lower costal margin Skinno bruising, no rashes, no pruritus Neurono isolated weakness, no paresthesia, no weakness Psychno depression, no anxiety Physical Exam 2 Physical Exam: General-alert and oriented x3, no fever, no chills HEENT-head atraumatic and normocephalic, pupils equal and reactive to light, extraocular muscles intact Neck-no lymphadenopathy or thyromegaly, trachea midline Chest-clear to auscultation. No rales, wheezing or rhonchi Cardiac-regular rate and rhythm, normal S1 and S2 Abdomen-normal bowel sounds, no hepatosplenomegaly Musculoskeletaltenderness to palpation along the right rib costal margin Extremities-no cyanosis, clubbing, or edema Neuro-cranial nerves II through XII intact, motor and sensory function within normal limits, strength symmetrical, no focal deficits Psych-normal affect, normal mood Results & Data Results & Data Vital Signs (Past 12 Hours) Vital Signs Temp Pulse Pulse Resp BP BP BP 01/01/25 07:09 36.7 C 91 H 16 116/80 01/01/25 04:20 01/01/25 04:20 36.8 C 88 16 110/69 01/01/25 03:53 89 20 109/76 01/01/25 02:30 82 18 143/90 H 01/01/25 02:00 82 18 129/81 01/01/25 02:00 84 20 129/81 01/01/25 01:30 84 22 136/86 01/01/25 01:30 82 20 136/86 Pulse Ox O2 Del Method 01/01/25 07:09 95 Room Air 01/01/25 04:20 Room Air 01/01/25 04:20 94 Room Air 01/01/25 03:53 97 Room Air 01/01/25 02:30 97 01/01/25 02:00 95 01/01/25 02:00 98 Room Air 01/01/25 01:30 97 01/01/25 01:30 97 Room Air Laboratory Results 01/01/25 00:00 01/01/25 00:00 PG Care Time/CCT Total # of Minutes Spent Total Time Spent with Patient: Total time spent is greater than 50% in coordination of care (as documented) at patient's floor/unit and/or counseling patient: Coding Level of Care Code 93343 SUB INP/OBS CARE 3/50MIN Diagnoses Right upper quadrant abdominal pain R10.11 Hepatic cirrhosis K74.60 NAFLD (nonalcoholic fatty liver disease) K76.0 CAD (coronary artery disease) I25.10 Hypertension I10
[2025-01-01] MEDS: HYDROmorphone INJ 1 MG/ML SYRINGE IV PRN (16:43)
[2025-01-01] MEDS: ROSUVASTATIN CALCIUM 20 MG TAB PO SCH (20:12)
[2025-01-01] MEDS: METOPROLOL SUCC 50MG EXT REL TAB PO SCH (20:12)
[2025-01-01] MEDS: POTASSIUM CITRATE 10 MEQ TAB PO SCH (20:12)
--- NOTE | 2025-01-01 20:33 | Electrocardiogram Report ---
Test Reason : Blood Pressure : */* mmHG Vent. Rate : 96 BPM Atrial Rate : 96 BPM P-R Int : 148 ms QRS Dur : 128 ms QT Int : 388 ms P-R-T Axes : 86 68 -2 degrees QTcB Int : 490 ms Sinus rhythm with occasional Premature ventricular complexes and Premature atrial complexes Marked T wave abnormality consider anterolateral ischemia Abnormal ECG When compared with ECG of 28-Jul-2014 01:44, Premature ventricular complexes are now Present Premature atrial complexes are now Present Confirmed by Pérez Lane ([id number]) on 01/01/2025 8:32:50 PM Referred By: REFERRED SELF Confirmed By: Pérez Lane
[2025-01-01 23:13] VITALS: O2SAT 95
[2025-01-02 06:32] LABS: Hematocrit (blood only) 39.6 % (42.0-52.0); Hemoglobin 13.4 g/dL (14.0-18.0); Immature Granulocytes # (auto) 0.02 K/uL (0.01-0.20); Immature Granulocytes % (auto) 0.3 %; Mean Corpuscular Hemoglobin 29.6 pg (25.0-34.0); Mean Corpuscular Volume 87.4 fL (80.0-100.0); Platelet Count 166 K/uL (130-400); RDW Standard Deviation 45.8 fL (36.4-46.3); Red Blood Count 4.53 M/uL (4.70-6.10); White Blood Count 6.48 K/ul (4.8-10.8)
[2025-01-02 07:01] LABS: Alanine Aminotransferase 11.0 U/L (7-52); Albumin Globulin Ratio 1.3 (0.9-2); Albumin Level 4.2 gm/dl (3.4-5.0); Alkaline Phosphatase 74.0 U/L (34-104); Anion Gap 7.0 (3-11); Bilirubin,Total 2.5 mg/dl (0.2-1.0); Blood Urea Nitrogen 20.0 mg/dl (6-23); Calcium 9.4 mg/dl (8.6-10.3); Carbon Dioxide 22.0 mmol/L (21-32); Chloride 107.0 mmol/L (98-107); Creatinine Clr Calc Pharmacy 88.0 ml/min; Globulin 3.3 gm/dl (2.5-4.0); Glucose 101.0 mg/dl (70-99(Fasting)); Potassium 3.8 mmol/L (3.5-5.1); Sodium 136.0 mmol/L (136-145); Total Protein 7.5 gm/dl (6.0-8.3)
[2025-01-02 07:35] VITALS: BP 118/71; PULSE 78; RESP 16; TEMP 97.3
--- NOTE | 2025-01-02 10:30 | Discharge Summary ---
Discharge Summary Date of Service January 02, 2025 Principal Dx & Hospital Course #1 = Principal Diagnosis (1) Right upper quadrant abdominal pain: Improved but not completely resolved yet. Appears to be musculoskeletal in origin. HIDA scan is unremarkable. No evidence of acute cholecystitis. Total bilirubin is elevated slightly but no evidence of biliary tract obstruction. The patient states that he has had elevated bilirubin levels of no consequence in the past. (2) Hepatic cirrhosis: Nonalcoholic. Currently asymptomatic. (3) NAFLD (nonalcoholic fatty liver disease): Noted on CT scan. Patient aware (4) CAD (coronary artery disease): No evidence of acute [place]. Currently stable (5) Hypertension: Stable. Continue current medical management Plan Home today, January 02. He was instructed to return to the ED if his symptoms worsen. He was also instructed to see his PCP as soon as possible for follow- up. Admission HPI Per Admitting Provider The patient is a 69-year-old male with past medical history including prediabetes, NAFLD, hepatic cirrhosis, BPH with LUTS, kidney and ureteral calculus, coronary artery stenosis, CAD, hypertension, ocular migraine, and hyperlipidemia. He reports that he was recently on a car trip to [place], and returned back to the area 3 days ago. Upon return he noted development of some abdominal discomfort more commonly concentrated in the right upper quadrant. He had no associated nausea or vomiting. The pain been gradually worsening for the past few days. He thought the pain might be related to kidney stone he was told he had. CT scan of abdomen pelvis did not reveal any kidney stone, but did but did reveal known hepatic cirrhosis with a stable dilated portal vein, stable sliding and a hernia, stable enlarged prostate, and resolution of prior urinary bladder wall thickening. CT angiography of chestWas negative for PE was negative for PE. There was an interval increase in bibasilar atelectasis bands, and unchanged calcification along the pericardium. Laboratories revealed a normal procalcitonin at 3.7, normal lactate 1.1, borderline elevated WBC of 10.22, and mildly elevated glucose of 114. [employer] testing was negative. Patient was referred for evaluation for admission to [facility] service. Discharge Exam General-alert and oriented x3, no fever, no chills HEENT-head atraumatic and normocephalic, pupils equal and reactive to light, extraocular muscles intact Neck-no lymphadenopathy or thyromegaly, trachea midline Chest-clear to auscultation. No rales, wheezing or rhonchi Cardiac-regular rate and rhythm, normal S1 and S2 Abdomen-normal bowel sounds, no hepatosplenomegaly Musculoskeletaltenderness to palpation along the right rib costal margin Extremities-no cyanosis, clubbing, or edema Neuro-cranial nerves II through XII intact, motor and sensory function within normal limits, strength symmetrical, no focal deficits Psych-normal affect, normal mood Discharge Plan Discharge Items Patient Disposition: Home - Self-Care Reason For Visit: RUQ PAIN Discharge Diagnosis: Right upper quadrant pain Condition on Discharge: Good Activity: Resume your previous activity Non-emergency contact: Primary Care Provider Call non-emergency contact if: your symptoms worsen Follow-up/Referrals: Farnaz Laguna MD [Primary Care Provider] - Diet: Regular and Heart Healthy Addtl Attending Provider Instructions: All medications remain the same. See primary care provider soon as possible for follow-up. Return to ED if symptoms worsen Pending Studies at Discharge: No Stand-Alone Forms: [facility] [employer], Smoking Cessation Medications and DC Order Prescriptions: Continued nitroglycerin 0.4 mg tablet, sublingual 0.4 mg sublingual Q5M PRN (Reason: chest pain) Qty: 25 2RF Rx Instructions: until response; do not exceed 3 doses per episode. DO NOT TAKE WITHIN 24 hours of use of tadalafil !!!! alprazolam 1 mg tablet 1 mg PO UD Qty: 10 0RF Rx Instructions: 1 mg orally 30-60 min prior to air travel; rosuvastatin 20 mg tablet 20 mg PO HS Qty: 90 3RF tadalafil 5 mg tablet 5 mg PO DAILY Qty: 30 11RF potassium citrate 10 mEq (1,080 mg) tablet extended release 10 meq PO BID 30 Days Qty: 90 3RF sildenafil 100 mg tablet 100 mg PO DAILY PRN (Reason: sexual activity) Qty: 20 11RF Rx Instructions: administer 30 minutes to 4 hours before activity - do not administer with nitroglycerin tadalafil 20 mg tablet 20 mg PO DAILY PRN (Reason: sexual activity) Qty: 20 11RF metoprolol succinate 100 mg tablet extended release 24 hr 100 mg PO HS Qty: 90 1RF Rx Instructions: TAKE 1 TABLET BY MOUTH EVERY DAY aspirin 81 mg Tablet,Delayed Release (Dr/Ec) 81 mg PO HS Discharge Orders: Discharge Order (Routine); Ordered 01/02/25 Ordered By: Micky Ramos Admission Data Admit Date/Time: 01/01/25 03:12 Attending Provider: Micky Ramos Admit Provider: Lauro Renee Primary Care Provider: Farnaz Laguna Other Providers: Lauro Renee Hospital Stay Data Consultations 01/01/25 02:12 ED Decision to Admit Stat Diagnostic Imagining Performed 01/01/25 00:07 CT abd pelvis IV con only Stat CT angio chest PE protocol Stat 01/01/25 02:12 US gallbladder Stat Pending Results Patient Have Any Pending Studies at Discharge: No Discharge Instructions Given to Patient (Per Discharging Provider) All medications remain the same. See primary care provider soon as possible for follow-up. Return to ED if symptoms worsen Total Time Total Time Spent Total Time Spent (In Minutes): 45 minutes total time included patient exam, discharge planning, medication reconciliation. Coding Level of Care Code 39087 INP/OBS DISCH >30 MIN Diagnoses Right upper quadrant abdominal pain R10.11 Hepatic cirrhosis K74.60 NAFLD (nonalcoholic fatty liver disease) K76.0 CAD (coronary artery disease) I25.10 Hypertension I10
== END 2025-01-02 11:35 | disposition home or self-care (01) ==
LOC: ED 23:34 → 3N 23:34 → SUATTDRO 01-01 03:12 → 3N 01-01 03:53